=== PATIENT | female | born 1970 | race Caucasian/White ===

== ENCOUNTER → 2018-11-11 10:37 | Outpatient (CLI) | payer SELFPAY ==
--- NOTE | 2018-11-11 10:44 | MRI_ITS ---
STUDY: MRI LEFT KNEE REASON FOR EXAM: Pain and instability since April, no specific injury, evaluate medial meniscal tear. TECHNIQUE: Standardized fat and water weighted pulse sequences were obtained in all 3 orthogonal planes. COMPARISON: None. FINDINGS: There is a radial tear of the posterior horn of the medial meniscus at the root (T2 coronal images 13, 14; T2 sagittal image 10). Normal hyaline cartilage of the medial femorotibial compartment. There is very mild subchondral bone edema of the medial femoral condyle and tibial plateau (T2 coronal images 15-20), a stress phenomenon. There is mild periligamentous inflammation of the medial collateral ligament (T2 coronal image 18). Normal distal semimembranosus, gracilis and semitendinosus tendons. Normal lateral meniscus. Normal hyaline cartilage of the lateral femorotibial compartment. Normal lateral femoral condyle and tibial plateau. Normal proximal tibiofibular articulation. Normal lateral collateral (fibular) ligament. Normal popliteus tendon. Normal biceps femoris tendon. Normal anterior cruciate ligament (ACL). Normal posterior cruciate ligament (PCL). Normal congruent patellofemoral articulation. There is low-grade chondromalacia of the lateral patellar facet (T2 axial image 9). Normal medial and lateral patellar retinaculum. Normal visualized quadriceps tendon. Normal patellar tendon. There is mild edema in Hoffa's fat pad (T2 sagittal images 15, 16). There is a small joint effusion. There is a slightly thickened medial patellar plica (T2 axial image 10). There is edema in the anterior subcutis adipose space. The otherwise visualized osseous structures are unremarkable. MRI/Lower Ext Joint Only (Routine) IMPRESSION: Radial tear at the root of the posterior horn of the medial meniscus. Very mild subchondral bone edema of the medial femoral condyle and medial tibial plateau, a stress phenomenon. Low-grade chondromalacia patellae. Mild periligamentous inflammation of the medial collateral ligament. Mild edema in Hoffa's fat pad. Slightly thickened medial patellar plica. Small joint effusion. Electronically Signed: Joshua Mendez MD at 13:47 EST Tel , Service support ,
== END ==
DX: S83.242A Other tear of medial meniscus, current injury, left knee, initial encounter (principal); M22.42 Chondromalacia patellae, left knee
CPT/HCPCS: 73721